=== PATIENT | female | born 1960 | race Caucasian/White ===

== ENCOUNTER 2024-01-11 17:17 | Emergency (ER) | payer OTHER, SELFPAY ==
[2024-01-11 17:21] VITALS: BP 170/101
--- NOTE | 2024-01-11 17:40 | ED.GENMED ---
History of Present Illness
General
Chief Complaint: Dental Problem
Time Seen by Provider: 01/11/24 17:40
History of Present Illness
History of Present Illness:
TIME OF INITIAL ENCOUNTER: 5:45 PM
HPI: Her dentist referred her to an firmware architect due to abscess at tooth #18; saw firmware architect today who did a CT (she has on flash drive but I cannot open) and said she need to see an oral surgeon for removal of tooth #18. 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
destruction as well. Marked worse swelling throughout the day and now in rather significant pain. Ballast Cleaning Operator tried to remove; but only removed the cap and could not remove the tooth; tried to call multiple oral surgeons, but could not get in to see
anyone.
EXAM:
GENERAL: Well appearing in no distress
HEENT: Moist oral mucosa, no significant pain with palpation of the left mandibular teeth however there is marked soft tissue swelling over the angle of the mandible
NEUROLOGIC: Excellent strength all extremities, no coordination deficits
PSYCHIATRIC: Appropriate mental status, normal insight and judgement
EXTREMITIES: Nontender, no edema, moves all extremities equally
SKIN: No rash, no lesions
NUMBER AND COMPLEXITY OF PROBLEMS ADDRESSED AT THE ENCOUNTER
� Chronic conditions affecting care: Former smoker, high blood pressure
� Acute Exacerbation and/or Progression of Chronic Illness: This is an acute problem
� Differential Diagnosis includes: Dental abscess, mandibular infection, facial infection
AMOUNT AND/OR COMPLEXITY OF DATA TO BE REVIEWED AND ANALYZED
� I performed an independent evaluation of and my interpretation is:
EKG:
CT:
X-rays:
Laboratory Studies: White count 10.4, hemoglobin normal, chemistries unremarkable
Other:
� Review of other/old records: I reviewed old records, the patient had colonoscopy in 2022
� Clinical information was obtained by an independent historian: I spoke to family member at bedside
� Prescriptions/Medications Considered but not given:
� Further testing considered but not performed: Considered CT imaging however the patient just recently had a CT�I attempted to review these images on the flask drive that she brought in however I was unable to open the images
RISK OF COMPLICATIONS AND/OR MORBIDITY OR MORTALITY OF PATIENT MANAGEMENT
� Social determinants of health affecting care: Lives at home
� Discussion with other providers: Discussed case with Dr. Nunn at 6 PM
� Escalation of care including admission/observation vs risk of discharge considered:
ANY OTHER UPDATES:
Prior to discharge, Dr. Nunn has accepted to see her at 9:15 AM the following day in her office
Phy Exam
Physical Exam
Physical Exam:
See HPI
Course
Orders/Labs/Results
Orders:
Orders
01/11/24 17:56
Basic Metabolic Panel Urgent
Complete Blood Count/With Diff Urgent
01/11/24 18:31
Ketorolac [Toradol] 15 mg IV NOW STA
01/11/24 18:32
Clindamycin 600 mg/50 ml [Cleocin] 600 mg in 50 ml IV NOW
01/11/24 19:08
Oxycodone/Acetaminophen [Percocet 5/325] 2 tablet PO NOW STA
Abnormal Lab Results
01/11/24
17:56
Absolute Neuts (auto) 6.9 H 10^3/uL
(1.4-6.5)
Absolute Monos (auto) 1.2 H 10^3/uL
(0.1-0.6)
Lymphocytes % 20.0 L %
(20.5-51.1)
Monocytes % 11.7 H %
(1.7-9.3)
BUN 18 H mg/dl
(7-17)
Glucose 129 H mg/dl
(70-99)
01/11/24 17:56
01/11/24 17:56
Vital Signs
Initial and Last Documented VS:
Initial Vital Signs
Temp Pulse Resp BP Pulse Ox
98.2 F 75 18 170/101 98
01/11/24 17:21 01/11/24 17:21 01/11/24 17:21 01/11/24 17:21 01/11/24 17:21
Last Documented Vital Signs
Temp Pulse Resp BP Pulse Ox
98.2 F 75 18 140/59 94
01/11/24 17:21 01/11/24 17:21 01/11/24 17:21 01/11/24 20:00 01/11/24 20:01
*Critical Care Note
Total Time (30-74mins, 75-104mins- exclusive of procedures): Not Applicable
ED Attending Note
-
Portions of this chart may have been created with voice recognition software.� Occasional wrong word or��sound alike� substitutions may have occurred due to the inherent limitations of voice recognition software.
Discharge Plan
Departure
Patient Disposition: Home (Routine Discharge)
Date of Disposition: 01/11/24
Time of Disposition: 19:05
Patient with high blood pressure during this ER visit?: Yes
Discharge Problem:
Dental abscess
Instructions: Tooth Abscess (DC)
Prescriptions:
No Action
multivitamin 1 EACH tablet
1 ea PO DAILY
aspirin 81 MG tablet,delayed release (DR/EC)
81 mg PO DAILY
rosuvastatin 5 MG tablet
5 mg PO DAILY
Referrals:
Ashley Nassar, DO [Family Provider] -
Casi Nunn DDS [Active] - Tomorrow
Activity Restrictions/Additional Instructions:
I discussed everything with Dr. Casi Nunn. [facility] [address] [place] [address] at 9:15 AM[address] the [address] with you. We gave you 600 mg of IV clindamycin while you are here.
Interventions
Interventions:
*Risk Screen - Suicide Last Done: 01/11/24 17:21
*General Assessment Last Done: 01/11/24 17:50
*Neglect/Abuse Screening Last Done: 01/11/24 17:21
*ED COVID-19 Vaccine History Last Done: 01/11/24 17:50
*Nursing Disposition Last Done: 01/11/24 20:23
Discharge Date and Time
Discharge Date/Time: 01/11/24 20:24
Print Language: SLOVAK
[2024-01-11 18:00] VITALS: BP 166/88
[2024-01-11 18:12] LABS: % Basophils 0.5 % (0-2); % Eosinophils 1.5 % (0-6); % Immature Granulocytes 0.2 % (0-0.5); % Monocytes 11.7 % (1.7-9.3); % Neutrophils 66.1 % (42.2-75.2); Absolute Basophils 0.1 10^3/uL (0-0.2); Absolute Eosinophils 0.2 10^3/uL (0-0.7); Absolute Lymphocytes 2.1 10^3/uL (1.2-3.4); Absolute Monocytes 1.2 10^3/uL (0.1-0.6); Absolute Neutrophils 6.9 10^3/uL (1.4-6.5); Hematocrit 39.1 % (37.0-47.0); Hemoglobin 13.1 g/dL (12.0-16.0); Mean Corp Hgb Conc. 33.5 g/dL (33.0-37.0); Mean Corpuscular Hgb 29.8 pg (27.0-31.0); Mean Corpuscular Volume 88.9 fL (81.0-99.0); Mean Platelet Volume 9.6 fL (7.4-10.4); Nucleated Red Blood Cells % 0 %; Platelet Count 242 10^3/uL (130-400); Red Cell Dist. Width 13.3 % (11.5-14.5); White Blood Cell Count 10.4 10^3/uL (4.8-10.8)
[2024-01-11 18:27] LABS: Blood Urea Nitrogen 18 mg/dl (7-17); Calcium 9.7 mg/dl (8.4-10.2); Carbon Dioxide 26 mmol/L (22-30); Chloride 101 mmol/L (98-107); Glucose 129 mg/dl (70-99); Potassium 3.9 mmol/L (3.5-5.1); Sodium 143 mmol/L (135-145); eGFR > 60.00
[2024-01-11] MEDS: TORADOL 15 MG IV (18:38)
[2024-01-11] MEDS: CLEOCIN 50 IV (18:39)
[2024-01-11 19:00] VITALS: BP 145/78
[2024-01-11] MEDS: PERCOCET 5/325 2 TABLET PO (19:12)
[2024-01-11 20:00] VITALS: BP 140/59
== END 2024-01-11 20:24 | disposition home or self-care (01) ==
LOC: EMR 17:17
PROVIDERS: EMERGENCY PHYSICIAN Emergency Medicine; FAMILY PHYSICIAN Family Medicine
DX: K04.7 Periapical abscess without sinus (principal); I10 Essential (primary) hypertension; Z87.891 Personal history of nicotine dependence
CPT/HCPCS: 96365; 96375; 99284; 80048; 85025

== ENCOUNTER → 2024-04-12 09:45 | Outpatient (REF) | payer OTHER, SELFPAY | LOC: RAD 09:45 | PROVIDERS: ATTENDING PHYSICIAN Family Medicine; OTHER PHYSICIAN Surgery Vascular Surgery | DX: I65.21 Occlusion and stenosis of right carotid artery (principal) | CPT/HCPCS: 93880 ==

== ENCOUNTER → 2024-06-27 13:58 | Outpatient (REF) | payer OTHER, SELFPAY | LOC: DHSLP 13:58 | PROVIDERS: ATTENDING PHYSICIAN Internal Medicine; FAMILY PHYSICIAN Family Medicine | DX: G47.19 Other hypersomnia (principal); R06.83 Snoring | CPT/HCPCS: 95800 ==

== ENCOUNTER → 2024-07-20 08:28 | Outpatient (REF) | payer OTHER, SELFPAY | LOC: RAD 08:28 | PROVIDERS: ATTENDING PHYSICIAN Surgery Vascular Surgery; FAMILY PHYSICIAN Family Medicine | DX: L81.9 Disorder of pigmentation, unspecified (principal) | CPT/HCPCS: 93922; 93925 ==

== ENCOUNTER → 2024-08-24 08:56 | Outpatient (REF) | payer OTHER, SELFPAY | LOC: RCS 08:56 | PROVIDERS: ATTENDING PHYSICIAN Internal Medicine Cardiovascular Disease; FAMILY PHYSICIAN Family Medicine | DX: R06.09 Other forms of dyspnea (principal); I49.3 Ventricular premature depolarization | CPT/HCPCS: 93306 ==